=== PATIENT | male | born 1980 | race Caucasian/White ===

== ENCOUNTER 2018-11-30 04:25 | Inpatient (IN) | payer MEDICAID ==
[2018-11-30] MEDS ORDERED: NITROGLYCERIN OINT 1 INCH/GM PACKET TOPICAL STA (04:36)
--- NOTE | 2018-11-30 04:39 | ED ---
Chest Pain HPI - General Chief Complaint: Chest Pain Stated Complaint: chest pain Time Seen by Provider: 11/30/18 04:29 Source: family, EMS Mode of arrival: EMS Limitations: no limitations - History of Present Illness Initial Comments: This patient is a 38-year-old man brought by ambulance to be evaluated for chest pain. The patient relates that he has been having episodes of chest pain, indicating the substernal area, that is been going on intermittently for number of days now. The patient states that he was awakened this morning shortly after 2 AM by the same symptoms, but states it was more severe than it had been. The pain was aching, he states that radiated to his jaw and to his arms. He states that after he called EMS they did give him aspirin and nitroglycerin and that this seems to relieve the pains. He states that the pains were accompanied by feeling short of breath and sweaty. MD Complaint: chest pain Onset/Timin -: hour(s) Onset: during rest, awoke with symptoms Pain Location: substernal Pain Radiation: LUE, jaw/teeth Severity: severe Quality: aching Consistency: now resolved Improves With: nitroglycerin Worsens With: nothing Anginal Symptoms: nausea, diaphoresis Treatments Prior to Arrival: aspirin, nitroglycerin - Related Data Home Medications Medication Instructions Recorded Confirmed Aspirin EC [Ecotrin Low Dose] 81 mg PO ONCE PRN 11/30/18 11/30/18 Flaxseed Oil 1,000 mg PO DAILY 11/30/18 11/30/18 Omeprazole 20 mg PO DAILY 11/30/18 11/30/18 Previous Rx's Medication Instructions Recorded Atorvastatin [Lipitor] 80 mg PO HS #30 tab 12/01/18 Clopidogrel [Plavix] 75 mg PO DAILY #30 tab 12/01/18 Metoprolol Succinate (ER) [Toprol 12.5 mg PO HS #30 tab.er.24h 12/01/18 XL] Nitroglycerin Sl Tabs [Nitrostat] 0.4 mg SUBLINGUAL Q5M PRN #25 tab 12/01/18 Allergies Allergy/AdvReac Type Severity Reaction Status Date / Time No Known Allergies Allergy Verified 11/30/18 06:38 Review of Systems ROS Statement: Those systems with pertinent positive or pertinent negative responses have been documented in the HPI. ROS Other: All systems not noted in ROS Statement are negative. Constitutional: Denies: fever, chills Respiratory: Reports: dyspnea. Denies: cough Cardiovascular: Reports: chest pain. Denies: palpitations, orthopnea, edema, syncope Gastrointestinal: Reports: nausea. Denies: abdominal pain, vomiting, melena, hematochezia Genitourinary: Denies: dysuria, hematuria Musculoskeletal: Denies: back pain Skin: Denies: rash Neurological: Denies: headache, weakness, numbness Hematological/Lymphatic: Denies: easy bleeding EKG Findings - EKG Results: EKG: interpreted by KEYANA, sinus rhythm (Rate 71 bpm), normal axis, normal QRS, normal ST/T Past Medical History Past Medical History: GERD/Reflux, Hypertension History of Any Multi-Drug Resistant Organisms: None Reported Past Surgical History: No Surgical Hx Reported Past Psychological History: No Psychological Hx Reported Smoking Status: Current every day smoker Past Alcohol Use History: None Reported Past Drug Use History: None Reported General Exam Limitations: no limitations General appearance: alert, in no apparent distress Head exam: Present: atraumatic, normocephalic Eye exam: Present: normal appearance. Absent: scleral icterus, conjunctival injection ENT exam: Present: normal oropharynx, mucous membranes moist Neck exam: Present: normal inspection Respiratory exam: Present: normal lung sounds bilaterally. Absent: respiratory distress, wheezes, rales, rhonchi, stridor, chest wall tenderness Cardiovascular Exam: Present: regular rate, normal rhythm, normal heart sounds. Absent: systolic murmur, diastolic murmur, rubs, gallop GI/Abdominal exam: Present: soft. Absent: distended, tenderness, guarding, rebound, rigid, mass Extremities exam: Present: normal inspection, normal capillary refill. Absent: pedal edema, calf tenderness Back exam: Present: normal inspection. Absent: CVA tenderness (R), CVA tenderness (L) Neurological exam: Present: alert Skin exam: Present: warm, dry, intact, normal color. Absent: rash Course Vital Signs 11/30/18 11/30/18 11/30/18 04:28 04:33 05:31 Temperature 98.3 F Pulse Rate 70 54 L Respiratory 16 22 20 Rate Blood Pressure 150/110 127/92 O2 Sat by Pulse 97 97 Oximetry 11/30/18 11/30/18 06:00 06:33 Temperature 98.2 F Pulse Rate 54 L 53 L Respiratory 18 20 Rate Blood Pressure 135/80 129/81 O2 Sat by Pulse 98 97 Oximetry - Reevaluation(s) Reevaluation #1: 11/30/18 04:48 The patient's repeat 12-lead ECG shows what appears to be normal sinus rhythm rate of 60 bpm, otherwise similar to first ECG. Chest Pain MDM - [facility] Patient's 38-year-old man with episodes of chest pain. He is free of pain following the medications that EMS had given. Troponin is minimally elevated. Heparin is ordered and is I did discuss case with cardiology who will see the patient. Critical Care Time Critical Care Time: Yes (35 minutes) Disposition Clinical Impression: Acute coronary syndrome Disposition: ADMITTED IP TO THIS HOSP Condition: Stable Is patient prescribed a controlled substance at d/c from ED?: No
[2018-11-30 04:43] LABS: Basophils # (A) 0.1 k/uL (0-0.2); Basophils % (A) 1 %; Eosinophils # (A) 0.4 k/uL (0-0.7); Eosinophils % (A) 4 %; HCT 45.7 % (39.0-53.0); HGB 15.4 gm/dL (13.0-17.5); Lymphocytes # (A) 3.1 k/uL (1.0-4.8); Lymphocytes % (A) 31 %; MCH 30.2 pg (25.0-35.0); MCHC 33.8 g/dL (31.0-37.0); MCV 89.4 fL (80.0-100.0); Mean Platelet Volume 6.3; Monocytes # (A) 0.5 k/uL (0-1.0); Monocytes % (A) 5 %; Neutrophils # (A) 5.8 k/uL (1.3-7.7); Neutrophils % (A) 58 %; Platelet Count 416 k/uL (150-450); RBC 5.11 m/uL (4.30-5.90); RDW 14.2 % (11.5-15.5); WBC 10.1 k/uL (3.8-10.6)
[2018-11-30 04:56] LABS: INR 0.9 (<1.2); Partial Thromboplastin Time 22.8 sec (22.0-30.0); Prothrombin Time 9.8 sec (9.0-12.0)
[2018-11-30 04:57] LABS: African American GFR (CKD) >90 (>60 ml/min/1.73 sqM); Amylase 44 U/L (30-110); Anion Gap 11 mmol/L; Calcium 9.1 mg/dL (8.4-10.2); Carbon Dioxide 23 mmol/L (22-30); Chloride 107 mmol/L (98-107); Glucose 110 mg/dL (74-99); Non-African American GFR(CKD) >90 (>60 ml/min/1.73 sqM); Sodium 141 mmol/L (137-145)
[2018-11-30 04:58] LABS: Albumin 4.1 g/dL (3.5-5.0); Blood Urea Nitrogen 14 mg/dL (9-20); Potassium 4.5 mmol/L (3.5-5.1); Total Bilirubin 0.4 mg/dL (0.2-1.3)
[2018-11-30 04:59] LABS: ALT 34 U/L (21-72); AST 33 U/L (17-59); Alkaline Phosphatase 53 U/L (38-126)
--- NOTE | 2018-11-30 05:07 | XR ---
EXAM: XR Chest, 1 View CLINICAL HISTORY: ITS.REASON XR Reason: chest pain TECHNIQUE: Frontal view of the chest. COMPARISON: No relevant prior studies available. FINDINGS: Lungs: Unremarkable. No consolidation. Pleural space: Unremarkable. No pneumothorax. Heart: No pneumomediastinum. Mediastinum: Unremarkable. Bones/joints: No definite fracture. IMPRESSION: No acute findings.
[2018-11-30 05:11] LABS: D-Dimer 0.79 mg/L FEU (<0.60)
[2018-11-30] MEDS ORDERED: HEPARIN SODIUM,PORCINE 5,000 UNIT/ML 1 ML VIAL IV ONE (06:11)
[2018-11-30] MEDS ORDERED: HEPARIN SODIUM,PORCINE 5,000 UNIT/ML 1 ML VIAL IV PRN (06:11)
[2018-11-30] MEDS: HEPARIN SOD,PORK IN 0.45% NACL 25,000 UNIT in 0.45% NACL 1 250ML.BAG IV SCH (06:21)
[2018-11-30] MEDS ORDERED: ACETAMINOPHEN TAB 325 MG TAB PO PRN (06:24)
[2018-11-30] MEDS ORDERED: MORPHINE SULFATE 4 MG/ML SYRINGE IV PRN (06:24)
[2018-11-30] MEDS ORDERED: NITROGLYCERIN SL TABS 0.4 MG TAB SUBLINGUAL PRN ×2 (06:24→07:46)
[2018-11-30] MEDS ORDERED: ATORVASTATIN 80 MG TAB PO STA (06:26)
[2018-11-30] MEDS ORDERED: SODIUM CHLORIDE 0.9% 1,000 ML IV SCH ×2 (06:30→08:00)
--- NOTE | 2018-11-30 06:35 | CT ---
EXAM: CT Angiography Chest Without And With Intravenous Contrast CLINICAL HISTORY: ITS.REASON CT Reason: elevated d-dimer TECHNIQUE: Axial computed tomographic angiography images of the chest without and with intravenous contrast using pulmonary embolism protocol. This CT exam was performed using one or more of the following dose reduction techniques: automated exposure control, adjustment of the mA and/or kV according to patient size, and/or use of iterative reconstruction technique. 3D reconstructed images were created and reviewed. COMPARISON: No relevant prior studies available. FINDINGS: Pulmonary arteries: Unremarkable. No pulmonary embolism. Aorta: No suspicious findings. No thoracic aortic aneurysm. Lungs: Peribronchial thickening without infiltrate. No mass. Pleural space: Unremarkable. No significant effusion. No pneumothorax. Heart: Unremarkable. No cardiomegaly. No significant pericardial effusion. No evidence of RV dysfunction. Bones/joints: No acute fracture. No dislocation. Soft tissues: Unremarkable. Lymph nodes: Unremarkable. No enlarged lymph nodes. IMPRESSION: No acute findings.
--- NOTE | 2018-11-30 06:37 | CT ---
EXAM: CT Abdomen and Pelvis With Intravenous Contrast CLINICAL HISTORY: ITS.REASON CT Reason: Pain TECHNIQUE: Axial computed tomography images of the abdomen and pelvis with intravenous contrast. This CT exam was performed using one or more of the following dose reduction techniques: automated exposure control, adjustment of the mA and/or kV according to patient size, and/or use of iterative reconstruction technique. COMPARISON: No relevant prior studies available. FINDINGS: Lung bases: Unremarkable. No mass. No consolidation. ABDOMEN: Liver: Unremarkable. No mass. Gallbladder and bile ducts: No abnormal ductal dilation or stones. Pancreas: Unremarkable. No mass. No ductal dilation. Spleen: Unremarkable. No splenomegaly. Adrenals: Unremarkable. No mass. Kidneys and ureters: Unremarkable. No solid mass. No hydronephrosis. Stomach and bowel: No obstruction. No mucosal thickening. PELVIS: Appendix: No findings to suggest acute appendicitis. Bladder: Unremarkable. No mass. Reproductive: Unremarkable as visualized. ABDOMEN and PELVIS: Intraperitoneal space: Unremarkable. No free air. No significant fluid collection. Bones/joints: No acute fracture. No dislocation. Soft tissues: Unremarkable. Vasculature: No abdominal aortic aneurysm. Lymph nodes: Unremarkable. No enlarged lymph nodes. IMPRESSION: No acute findings.
[2018-11-30 06:46] LABS: Amphetamine Screen,Urine Not Detected (NotDetected); Barbiturate Screen,Urine Not Detected (NotDetected); Benzodiazepines Screen,Urine Not Detected (NotDetected); Cocaine Screen,Urine Not Detected (NotDetected); Methadone Screen, Urine Not Detected (NotDetected); Opiate Screen,Urine Not Detected (NotDetected); Oxycodone Screen, Urine Not Detected (NotDetected); Phencyclidine Screen,Urine Not Detected (NotDetected); Tricyclic Antidepressant,Urine Not Detected (NotDetected); Urn Cannabinoid Scrn Not Detected (NotDetected)
[2018-11-30 06:58] LABS: Basophils # (A) 0.1 k/uL (0-0.2); Basophils % (A) 1 %; Eosinophils # (A) 0.3 k/uL (0-0.7); Eosinophils % (A) 3 %; HCT 45.4 % (39.0-53.0); HGB 14.9 gm/dL (13.0-17.5); Lymphocytes # (A) 2.2 k/uL (1.0-4.8); Lymphocytes % (A) 24 %; MCH 29.4 pg (25.0-35.0); MCHC 32.9 g/dL (31.0-37.0); MCV 89.4 fL (80.0-100.0); Monocytes # (A) 0.5 k/uL (0-1.0); Monocytes % (A) 5 %; Neutrophils % (A) 65 %; Platelet Count 389 k/uL (150-450); RBC 5.08 m/uL (4.30-5.90); RDW 12.8 % (11.5-15.5); WBC 9.2 k/uL (3.8-10.6)
[2018-11-30] MEDS ORDERED: HEPARIN SODIUM 1,000 UN/ML (10ML VL) ONE (07:05)
[2018-11-30] MEDS ORDERED: VERAPAMIL 2.5 MG/ML 2 ML AMP ONE (07:05)
[2018-11-30] MEDS ORDERED: LIDOCAINE 1% INJ 10MG/ML (20 ML MDV) ONE (07:05)
[2018-11-30 07:06] LABS: Partial Thromboplastin Time 70.8 sec (22.0-30.0); Prothrombin Time 10.6 sec (9.0-12.0)
[2018-11-30] MEDS ORDERED: MIDAZOLAM PF (FBP) 2 MG/2 ML VIAL IV ONE (07:14)
[2018-11-30] MEDS ORDERED: IV FLUID CONTINUATION 1,000 ML IV ONE (07:15)
[2018-11-30] MEDS ORDERED: LIDOCAINE 1% INJ 10MG/ML (20 ML MDV) SQ ONE (07:15)
[2018-11-30] MEDS ORDERED: fentaNYL (PF) 50 MCG/ML 2 ML AMP ONE (07:16)
--- NOTE | 2018-11-30 07:17 | P.CRDCN ---
History of Present Illness History of present illness: This is Dr. Milner dictating a consult on this patient The patient was interviewed and examined by me IMPRESSION / ASSESSMENT: Acute coronary syndrome abnormal cardiac enzymes transient ST elevation en Route to the hospital with resolution by the time he came to the hospital Hypertension Current smoker PLAN: IV heparin aspirin and statins, B-blockers control blood pressure and urgent coronary angiography and appropriate intervention Hemoglobin A1c Tox screen Lipid panel HPI For the last several days starting probably Friday of last week the patient has been experiencing transient discomfort in the chest that radiates into his jaw and both his elbows and associated with nausea or sweatiness and feeling weak. The episodes last for a few minutes and then subside. This is been happening repeatedly for the last several days. This morning he was woken up with midsternal chest discomfort of a similar character and same associated symptoms that lasted for 20-30 minutes and he called EMS The EMS ECG shows ST elevation in the inferior leads with ST depression in V1 and V2 but when he arrived here he is pain-free and the twelve-lead ECGs show a very subtle ST segment abnormality in the inferior leads only, mostly in one EKG but the other 2 EKGs look fairly normal ROS: No fever chills or rigors, no cough, phlegm or expectoration, no nausea, vomiting or diarrhea, no hematuria, dysuria, no musculoskeletal complaints, no strokes or seizures, no skin lesions. EXAMINATION: Blood pressure 129/81 mmHg pulse rate in the 50s afebrile 98.2F Breath sounds are clear no rhonchi no crackles Heart sounds S1 and S2 are normal no murmurs no gallops no rub Abdomen soft nontender Extremity is warm no edema REVIEW OF LABS, ECG & MEDICAL DATA Mildly elevated d-dimer Abnormal troponin at 0.05 to normal kidneys normal electrolytes Hemoglobin 14.9 Past Medical History Past Medical History: GERD/Reflux, Hypertension History of Any Multi-Drug Resistant Organisms: None Reported Past Surgical History: No Surgical Hx Reported Past Psychological History: No Psychological Hx Reported Smoking Status: Current every day smoker Past Alcohol Use History: None Reported Past Drug Use History: None Reported Medications and Allergies Home Medications Medication Instructions Recorded Confirmed Type Aspirin EC [Ecotrin Low Dose] 81 mg PO ONCE PRN 11/30/18 11/30/18 History Flaxseed Oil 1,000 mg PO DAILY 11/30/18 11/30/18 History Metoprolol Succinate [Toprol XL] 25 mg PO HS 11/30/18 11/30/18 History Omeprazole 20 mg PO DAILY 11/30/18 11/30/18 History cloNIDine HCL [Catapres] 0.2 mg PO BID 11/30/18 11/30/18 History Allergies Allergy/AdvReac Type Severity Reaction Status Date / Time No Known Allergies Allergy Verified 11/30/18 06:38 Physical Exam Vitals: Vital Signs Temp Pulse Resp BP Pulse Ox 11/30/18 06:33 98.2 F 53 L 20 129/81 97 11/30/18 06:00 54 L 18 135/80 98 11/30/18 05:31 54 L 20 127/92 97 11/30/18 04:33 22 11/30/18 04:28 98.3 F 70 16 150/110 97 Intake and Output 11/29/18 11/30/18 11/30/18 22:59 06:59 14:59 Other: Weight 87.09 kg Results 11/30/18 06:46 11/30/18 04:31 Cardiac Enzymes 11/30/18 11/30/18 Range/Units 04:31 04:31 AST 33 (17-59) U/L Troponin I 0.052 H* (0.000-0.034) ng/mL Coagulation 11/30/18 11/30/18 Range/Units 04:31 06:46 PT 9.8 10.6 (9.0-12.0) sec APTT 22.8 70.8 H (22.0-30.0) sec CBC 11/30/18 11/30/18 Range/Units 04:31 06:46 WBC 10.1 9.2 (3.8-10.6) k/uL RBC 5.11 5.08 (4.30-5.90) m/uL Hgb 15.4 14.9 (13.0-17.5) gm/dL Hct 45.7 45.4 (39.0-53.0) % Plt Count 416 389 (150-450) k/uL Comprehensive Metabolic Panel 11/30/18 Range/Units 04:31 Sodium 141 (137-145) mmol/L Potassium 4.5 (3.5-5.1) mmol/L Chloride 107 (98-107) mmol/L Carbon Dioxide 23 (22-30) mmol/L BUN 14 (9-20) mg/dL Creatinine 1.03 (0.66-1.25) mg/dL Glucose 110 H (74-99) mg/dL Calcium 9.1 (8.4-10.2) mg/dL AST 33 (17-59) U/L ALT 34 (21-72) U/L Alkaline Phosphatase 53 (38-126) U/L Total Protein 7.0 (6.3-8.2) g/dL Albumin 4.1 (3.5-5.0) g/dL Current Medications Generic Name Dose Route Start Last Admin Trade Name Freq PRN Reason Stop Dose Admin Acetaminophen 650 mg 11/30/18 06:24 Tylenol Tab PO Q4HR PRN Pain Aspirin 325 mg 12/01/18 09:00 Aspirin PO DAILY [facility] Atorvastatin Calcium 80 mg 12/01/18 09:00 Lipitor PO DAILY [facility] Heparin Sodium (Porcine) 0 unit 11/30/18 06:11 Heparin IV PER PROTOCOL PRN Low PTT Protocol Heparin Sodium/Sodium Chloride 250 mls @ 9.58 mls/hr 11/30/18 06:15 11/30/18 06:21 25,000 unit/ Sodium Chloride IV 11 units/kg/hr .Q24H FIFI 9.58 mls/hr Administration Protocol 11 UNITS/KG/HR Sodium Chloride 1,000 mls @ 100 mls/hr 11/30/18 06:30 Saline 0.9% IV .Q10H [facility] Morphine Sulfate 4 mg 11/30/18 06:24 Morphine Sulfate (Inj) IV Q5M PRN Chest Pain Nitroglycerin 0.4 mg 11/30/18 06:24 Nitrostat SUBLINGUAL Q5M PRN Chest Pain Intake and Output 11/29/18 11/30/18 11/30/18 22:59 06:59 14:59 Other: Weight 87.09 kg 11/30/18 06:46 11/30/18 04:31
[2018-11-30] MEDS ORDERED: VERAPAMIL SYRINGE (5 MG/10 ML) INTRAARTER ONE (07:18)
[2018-11-30] MEDS ORDERED: fentaNYL (PF) 50 MCG/ML 2 ML AMP IV ONE (07:20)
[2018-11-30] MEDS ORDERED: CLOPIDOGREL 75 MG TAB ONE (07:24)
[2018-11-30] MEDS ORDERED: BIVALIRUDIN BOLUS 250 MG/50 ML IV ONE (07:26)
[2018-11-30] MEDS ORDERED: CLOPIDOGREL 75 MG TAB PO ONE (07:27)
[2018-11-30] MEDS ORDERED: BIVALIRUDIN 250 MG in SODIUM CHLORIDE 0.9% 37 ML IV ONE (07:28)
[2018-11-30] MEDS: NITROGLYCERIN 1000MCG/10ML SYRINGE INTRACORON ONE ×2 (07:31→07:37)
[2018-11-30] MEDS ORDERED: IOPAMIDOL-370 100ML BTL INJ ONE (07:38)
[2018-11-30] MEDS ORDERED: ATROPINE SULFATE 0.1 MG/ML 10ML SYRINGE IV PRN (07:46)
[2018-11-30] MEDS ORDERED: RX INFO: IV CONTRAST WAS GIVEN 1 EACH MISC MISCELLANE PRN (07:46)
[2018-11-30] MEDS ORDERED: ZOLPIDEM 5 MG TAB PO PRN (07:46)
[2018-11-30] MEDS ORDERED: MAG HYDROX/AL HYDROX/SIMETH 30 ML CUP PO PRN (07:46)
--- NOTE | 2018-11-30 08:33 | CC ---
CARDIAC CATHETERIZATION REPORT CARDIAC CATHETERIZATION AND PERCUTANEOUS CORONARY INTERVENTION: DATE OF SERVICE: November 30, 2018 PERFORMING PHYSICIAN: Bao Perry MD. PROCEDURE PERFORMED: 1. Selective right and left coronary angiogram. 2. Successful stenting of the mid left circumflex using 3.25 x 18 mm Xience BORIS with an excellent angiographic result and reduction of stenosis from 100% to 0%. INDICATION: This is a 38-year-old gentleman who was brought to the emergency room by ambulance with chest discomfort. The EKG showed ischemic ST and T-wave abnormalities and the troponin came in to be abnormal, consistent with acute coronary syndrome. Because of that, a heart catheterization was advised. APPROACH: Right radial artery. COMPLICATION: None. LEVEL OF SEDATION: Moderate with sedation length of 29 minutes. PROCEDURE DESCRIPTION: After obtaining an informed consent, the patient was brought to cardiac slab off mill tender. The right radial artery was cannulated using micropuncture technique. The micropuncture wire passed easily then I placed a 6-Polish sheath. I did give the patient 2 mg of verapamil IA. Selective right and left coronary angiogram performed using JR4 and JL3.5 catheters. After that, I did intervene on the left circumflex. Please see a separate paragraph for that. SELECTIVE CORONARY ANGIOGRAM: 1. The right coronary artery is a large caliber vessel. It is a dominant vessel. The proximal RCA had a lesion appeared to be in the range of 30% to 40% only. The mid and distal RCA are angiographically normal. The RCA distally bifurcates into PDA and PLV branches, both appeared to be angiographically normal. 2. The left main is angiographically normal. It bifurcates into left circumflex and left anterior descending artery. 3. Left circumflex is a large caliber vessel. It is a nondominant vessel. The proximal circumflex is normal and gives rise into medium size first OM branch which seems to be angiographically normal. The mid circumflex has a lesion appeared to be in the range of 99.9%. The circumflex distally appeared to be angiographically normal. The circumflex distally gives rise into second OM branch which seems to be angiographically normal. 4. The LAD: The proximal LAD is normal and gives rise into first diagonal branch which has mild disease in its ostium. The mid LAD appeared to be normal and distally is normal as well. PCI OF THE LEFT CIRCUMFLEX: Anticoagulation was initiated using Angiomax. Subsequently I did engage the left main using JL3.5 guide. I did wire it. I did wire the left circumflex using a Whisper wire. After that I did PTCA ballooning using 2.5 x 12 mm balloon before I deployed 3.25 x 18 mm Xience BORIS where the stent was positioned under fluoroscopy guidance and deployed under 18 atmospheres for 20 seconds with the following angiogram showing excellent angiographic results with FARIHA-3 flow. No residual dissection. No perforation. CONCLUSION: 1. Acute non ST elevation myocardial infarction in this 38-year-old gentleman. 2. 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 3. Successful stenting of the mid left circumflex using 3.25 x 18 mm Xience BORIS with excellent angiographic results. POSTPROCEDURE MANAGEMENT: 1. Dual anti-platelet therapy. 2. Risk factors modifications. 3. Follow up with the patient. 4. An echocardiogram with Doppler. MMODL / IJN: [id number] /
--- NOTE | 2018-11-30 08:45 | LTR ---
November 30, 2018 Re: Andres Almanza Dear Dr. Scott: Mr. Andres lAmanza was brought to the emergency room at [facility] with chest discomfort and ruled in for acute non ST elevation myocardial infarction. He underwent a heart catheterization which revealed acute total occlusion of the left circumflex which was opened and stented with an excellent angiographic result. I want to thank you for allowing me to participate in his care and please do not hesitate to call if you have any question or concern. Sincerely, MD MALLORY Britton / FE: [id number] /
[2018-11-30 11:09] VITALS: RESP 18
--- NOTE | 2018-11-30 11:42 | ECHOF ---
Referral Reason:nstemi MEASUREMENTS -------- HEIGHT: 165.1 cm WEIGHT: 89.8 kg BP: 129/81 IVSd: 1.0 cm (0.6 - 1.1) LVIDd: 5.1 cm (3.9 - 5.3) LVPWd: 1.0 cm (0.6 - 1.1) IVSs: 1.1 cm LVIDs: 4.1 cm LVPWs: 1.0 cm Ao Diam: 3.1 cm (2.0 - 3.7) AV Cusp: 1.8 cm (1.5 - 2.6) MV EXCURSION: 19.436 mm (> 18.000) MV EF SLOPE: 155 mm/s (70 - 150) EPSS: 0.6 cm MV E Lázaro: 0.98 m/s MV DecT: 129 ms MV A Lázaro: 0.61 m/s MV E/A Ratio: 1.62 RAP: 5.00 mmHg RVSP: 25.88 mmHg FINDINGS -------- Sinus rhythm. This was a technically adequate study. LV size, wall thickness and systolic function are normal, with an EF greater than 55%. The left galileo tricular size is normal. The right ventricle is normal in size. The left atrial size is normal. Normal LA size by volume 22+/-6 ml/m2. The right atrial size is normal. The aortic valve is trileaflet, and appears structurally normal. No aortic stenosis or regurgitation. Mild mitral annular calcification present. Mild mitral regurgitation is present. Mild tricuspid regurgitation present. There is no evidence of pulmonary hypertension. The right v entricular systolic pressure, as measured by Doppler, is 25.88mmHg. There is no pulmonic regurgitation present. The aortic root size is normal. There is no pericardial effusion. CONCLUSIONS -------- 1. Sinus rhythm. 2. This was a technically adequate study. 3. LV size, wall thickness and systolic function are normal, with an EF greater than 55%. 4. The left ventricular size is normal. 5. The right ventricle is normal in size. 6. The left atrial size is normal. 7. Normal LA size by volume 22+/-6 ml/m2. 8. The right atrial size is normal. 9. The aortic valve is trileaflet, and appears structurally normal. No aortic stenosis or regurgitati on. 10. Mild mitral annular calcification present. 11. Mild mitral regurgitation is present. 12. Mild tricuspid regurgitation present. 13. There is no evidence of pulmonary hypertension. 14. The right ventricular systolic pressure, as measured by Doppler, is 25.88mmHg. 15. There is no pulmonic regurgitation present. 16. The aortic root size is normal. 17. There is no pericardial effusion. SEISMOGRAPH HELPER: Eda Cano RDCS
--- NOTE | 2018-11-30 11:58 | P.HPIM ---
History of Present Illness H&P Date: 11/30/18 Chief Complaint: Chest pain Patient is a 38-year-old male with a known history of hypertension, tourettes syndrome and GERD came to ER with complaints of chest tightness started around 2 AM last night and woke him up from sleep. Associated with shortness of breath. Pain is 7 / 10 in severity. Pain is mainly left retrosternal. Patient also felt left arm pain and elbow pain and jaw pain. Lasted about half an hour and associated with nausea as well. No episodes of vomiting. Patient felt dizzy. Denied any diaphoresis. Patient says that he has been having chest tightness for the past 3 days lasting about 3-5 minutes. Last night pain was more severe and more prolonged which made him to come to ER. EMS was called and patient was given aspirin and nitroglycerin which seemed to relieve his pain. No fever no chills. No cough or sputum production. No leg swelling. Patient says that he has been having exertional short of breath recently. Patient is taking Catapres and Toprol for his tourettes syndrome, which has been present for several years. Patient is off Catapres for 10 years . patient has been more symptomatic recently and was restarted on Catapres and Toprol at the end of October 2018. EKG showed sinus bradycardia with sinus arrhythmia. Prior EKG showed ST elevation in the inferior leads and ST depression in V1 and V2. CT abdomen and pelvis. Negative Chest x-ray showed no acute cardiopulmonary process. CT angiography on the chest showed no evidence of pulmonary embolism. D-dimer 0.79 Troponin 0.052 and 0.082 UDS negative. Patient does have history of smoking and family history of coronary artery disease with CO in his father at the age of 30s. Review of Systems Constitutional: Patient denies any fever or chills . No generalized weakness or weight loss. Abdomen: Patient denied nausea vomiting and diarrhea and abdominal pain. Cardiovascular: Patient denies any chest pain or short of breath no palpitations. Respiratory: patient denied any cough is from production. No shortness of b reath Neurologic: Patient denied any numbness or tingling headache. Musculoskeletal: Patient denies any complaints of joint swelling or deformity. Skin: Negative Psychiatric: Negative Endocrine: No heat or cold intolerance. No recent weight gain. Genitourinary: No dysuria or hematuria. All other 14 point ROS negative except the above Past Medical History Past Medical History: GERD/Reflux, Hypertension History of Any Multi-Drug Resistant Organisms: None Reported Past Surgical History: No Surgical Hx Reported Past Psychological History: No Psychological Hx Reported Smoking Status: Current every day smoker Past Alcohol Use History: None Reported Past Drug Use History: None Reported Medications and Allergies Home Medications Medication Instructions Recorded Confirmed Type Aspirin EC [Ecotrin Low Dose] 81 mg PO ONCE PRN 11/30/18 11/30/18 History Flaxseed Oil 1,000 mg PO DAILY 11/30/18 11/30/18 History Metoprolol Succinate [Toprol XL] 25 mg PO HS 11/30/18 11/30/18 History Omeprazole 20 mg PO DAILY 11/30/18 11/30/18 History cloNIDine HCL [Catapres] 0.2 mg PO BID 11/30/18 11/30/18 History Allergies Allergy/AdvReac Type Severity Reaction Status Date / Time No Known Allergies Allergy Verified 11/30/18 06:38 Physical Exam Vitals: Vital Signs Temp Pulse Resp BP Pulse Ox 11/30/18 06:33 98.2 F 53 L 20 129/81 97 11/30/18 06:00 54 L 18 135/80 98 11/30/18 05:31 54 L 20 127/92 97 11/30/18 04:33 22 11/30/18 04:28 98.3 F 70 16 150/110 97 Intake and Output 11/29/18 11/30/18 11/30/18 22:59 06:59 14:59 Other: Weight 87.09 kg PHYSICAL EXAMINATION: Patient is lying in the bed comfortably, no acute distress, awake alert and oriented.. HEENT: Normocephalic. Neck is supple. Pupils reactive. Nostrils clear. Oral cavity is moist. Ears reveal no drainage. Neck reveals no JVD, carotid bruits, or thyromegaly. CHEST EXAMINATION: Trachea is central. Symmetrical expansion. Lung collado clear to auscultation and percussion. CARDIAC: Normal S1, S2 with no gallops. No murmurs ABDOMEN: Soft. Bowel sounds normal. No organomegaly. No abdominal bruits. Extremities: reveal no edema. No clubbing or cyanosis Neurologically awake, alert, oriented x3 with well-coordinated movements. No focal deficits noted Skin: No rash or skin lesions. Psychiatric: Coperative. Nonsuicidal Musculoskeletal: No joint swelling or deformity. Normal range of motion. Results CBC & Chem 7: 11/30/18 06:46 11/30/18 04:31 Labs: Abnormal Lab Results - Last 24 Hours (Table) 11/30/18 11/30/18 11/30/18 Range/Units 04:31 04:31 04:31 APTT (22.0-30.0) sec D-Dimer 0.79 H (<0.60) mg/L FEU Glucose 110 H (74-99) mg/dL Troponin I 0.052 H* (0.000-0.034) ng/mL 11/30/18 11/30/18 Range/Units 06:46 06:46 APTT 70.8 H (22.0-30.0) sec D-Dimer (<0.60) mg/L FEU Glucose (74-99) mg/dL Troponin I 0.082 H* (0.000-0.034) ng/mL Thrombosis Risk Factor Assmnt - DVT/VTE Prophylaxis DVT/VTE Prophylaxis: Pharmacologic Prophylaxis ordered Assessment and Plan Assessment: Acute ST elevated CO. Status post cardiac catheterization (BORIS) stent placement to mid left circumflex artery. Sinus bradycardia Hypertension GERD Currently everyday smoker Family history of coronary disease. DVT prophylaxis Plan: Patient will be continued on telemetry monitoring. Currently denied any chest pain free. Continue with aspirin and Plavix statins and follow closely. Cardiology is on board. Metoprolol is on hold due to bradycardia. will continue to hold Catapres as well. Further recommendations based on the clinical course. Time with Patient: Greater than 30
[2018-11-30 12:51] VITALS: BMI 31.9
[2018-11-30] MEDS: ASPIRIN 325 MG TAB PO SCH (16:57)
[2018-11-30] MEDS: PANTOPRAZOLE 40 MG TABLET PO SCH (18:43)
[2018-11-30 19:32] LABS: Hemoglobin A1C 5.7 % (4.0-6.0)
[2018-11-30] MEDS: DOCUSATE 100 MG CAP PO SCH (19:53)
[2018-11-30] MEDS ORDERED: METOPROLOL SUCCINATE (ER) 25 MG TAB.ER.24H PO SCH (21:00)
[2018-11-30] MEDS ORDERED: ATORVASTATIN 80 MG TAB PO SCH (21:00)
[2018-12-01 06:13] LABS: Basophils # (A) 0.1 k/uL (0-0.2); Basophils % (A) 1 %; Eosinophils # (A) 0.3 k/uL (0-0.7); Eosinophils % (A) 3 %; HCT 46.2 % (39.0-53.0); HGB 15.3 gm/dL (13.0-17.5); Lymphocytes # (A) 2.6 k/uL (1.0-4.8); Lymphocytes % (A) 27 %; MCH 29.8 pg (25.0-35.0); MCHC 33.2 g/dL (31.0-37.0); MCV 89.7 fL (80.0-100.0); Mean Platelet Volume 6.4; Monocytes # (A) 0.5 k/uL (0-1.0); Monocytes % (A) 5 %; Neutrophils # (A) 5.9 k/uL (1.3-7.7); Neutrophils % (A) 62 %; Platelet Count 403 k/uL (150-450); RBC 5.15 m/uL (4.30-5.90); RDW 14.2 % (11.5-15.5); WBC 9.6 k/uL (3.8-10.6)
[2018-12-01 06:22] LABS: African American GFR (CKD) >90 (>60 ml/min/1.73 sqM); Cholesterol 177 mg/dL (<200); HDL Cholesterol 35 mg/dL (40-60); LDL Cholesterol,Calculated 114 mg/dL (0-99); Non-African American GFR(CKD) 81 (>60 ml/min/1.73 sqM); Triglycerides 141 mg/dL (<150)
[2018-12-01] MEDS: PANTOPRAZOLE 40 MG TABLET PO SCH (06:44)
[2018-12-01 07:45] VITALS: BP 153/90; PULSE 48; TEMP 97.6
[2018-12-01] MEDS: HEPARIN SOD,PORK IN 0.45% NACL 25,000 UNIT in 0.45% NACL 1 250ML.BAG IV SCH (08:53)
[2018-12-01] MEDS: DOCUSATE 100 MG CAP PO SCH (08:57)
[2018-12-01] MEDS: ASPIRIN 325 MG TAB PO SCH (08:57)
[2018-12-01] MEDS ORDERED: CLOPIDOGREL 75 MG TAB PO SCH (09:00)
[2018-12-01] MEDS ORDERED: ASPIRIN 81 MG PO SCH (09:00)
[2018-12-01] MEDS ORDERED: ASPIRIN 325 MG TAB PO SCH (09:00)
[2018-12-01] MEDS ORDERED: ATORVASTATIN 80 MG TAB PO SCH (09:00)
--- NOTE | 2018-12-01 14:28 | P.PN ---
Subjective Progress Note Date: 12/01/18 This is a pleasant 38-year-old gentleman who presented to the hospital with an ST elevation myocardial infarction, he was taken to the cardiac catheterization lab where he underwent angioplasty and stenting of the circumflex artery. Patient does have history of hypertension and was a smoker. His EKG performed this morning showed normal sinus rhythm with no changes from post-PCI. Echocardiogram with Doppler study was performed which revealed a normal left ventricular systolic function. The patient was seen and examined today, denied any chest pain in his breathing was stable. Blood pressure 148/80 with a heart rate in the 40s, 98% on room air. Objective - Vital Signs Vital signs: Vital Signs Temp 97.6 F 12/01/18 07:42 Pulse 48 L 12/01/18 07:42 Resp 18 12/01/18 11:50 BP 153/90 12/01/18 07:42 Pulse Ox 98 12/01/18 07:42 Intake & Output 11/30/18 12/01/18 12/01/18 18:59 06:59 18:59 Intake Total 666 240 Balance 666 240 Weight 87.09 kg 84.7 kg Intake: Oral 666 240 Other: Voiding Method Toilet Toilet Toilet # Voids 2 1 - Exam PHYSICAL EXAMINATION: GENERAL: He 8-year-old gentleman in no acute distress at the time of my examination HEENT: Head is atraumatic, normocephalic. Pupils equal, round. Sclera a nicteric. Conjunctiva are clear. Mucous membranes of the mouth are moist. Neck is supple. There is no elevated jugular venous pressure. No carotid bruit is heard. HEART EXAMINATION: [eart S1, S2 normal. No murmur or gallop heard.] CHEST EXAMINATION:[Lungs are clear to auscultation and precussion. No chest wall tenderness is noted on palpation or with deep breathing.] ABDOMEN: [Soft, nontender. Bowel sounds are heard. No organomegaly noted] EXTREMITIES:[2+ peripheral pulses with no evidence of peripheral edema and no calf tenderness noted] right radial site clean and dry, good distal pulse. NEUROLOGIC [atient is awake, alert and oriented X3. . - Labs CBC & Chem 7: 12/01/18 06:02 12/01/18 06:02 Labs: Abnormal Lab Results - Last 24 Hours (Table) 12/01/18 Range/Units 06:02 LDL Cholesterol, Calc 114 H (0-99) mg/dL HDL Cholesterol 35 L (40-60) mg/dL Assessment and Plan Plan: Assessment and plan #1 ST elevation NC status post angioplasty and stenting of the circumflex artery #2 hypertension #3 nicotine dependence #4 bradycardia Plan We will decrease the patient's dose of metoprolol to 12-1/2 mg at at bedtime, continue dual antiplatelet therapy as well as Lipitor 80, sublingual nitroglycerin as needed for chest pain patient may be discharged home today from our perspective. We will make him a follow-up appointment with Dr. Milner in the office post discharge. DNP note has been reviewed, I agree with a documented findings and plan of care. Patient was seen and examined.
[2018-12-01] MEDS ORDERED: METOPROLOL SUCCINATE (ER) 25 MG TAB.ER.24H PO SCH (21:00)
--- NOTE | 2018-12-14 02:14 | P.DS ---
Providers Date of admission: 11/30/18 10:34 Expected date of discharge: 12/01/18 Attending physician: Jacki Hansen Consults: 11/30/18 06:24 Consult Physician Stat Consulting Provider: Shadi Milner Consult Reason/Comments: Acute coronary syndrome Do you want consulting provider notified?: Already Contacted 11/30/18 07:46 Consult Physician Routine Consulting Provider: [facility] Consult Reason/Comments: Post Interventional patient Do you want consulting provider notified?: Already Contacted Primary care physician: Amilcar Scott [facility] Course: Discharge diagnosis Acute ST elevated MA. Status post cardiac catheterization (BORIS) stent placement to mid left circumflex artery. Sinus bradycardia Hypertension GERD Currently everyday smoker Family history of coronary disease. DVT prophylaxis Hospital course Patient is a 38-year-old male with a known history of hypertension, tourettes syndrome and GERD came to ER with complaints of chest tightness started around 2 AM last night and woke him up from sleep. Associated with shortness of breath. Pain is 7 / 10 in severity. Pain is mainly left retrosternal. Patient also felt left arm pain and elbow pain and jaw pain. Lasted about half an hour and associated with nausea as well. No episodes of vomiting. Patient felt dizzy. Denied any diaphoresis. Patient says that he has been having chest tightness for the past 3 days lasting about 3-5 minutes. Last night pain was more severe and more prolonged which made him to come to ER. EMS was called and patient was given aspirin and nitroglycerin which seemed to relieve his pain. No fever no chills. No cough or sputum production. No leg swelling. Patient says that he has been having exertional short of breath recently. Patient is taking Catapres and Toprol for his tourettes syndrome, which has been present for several years. Patient is off Catapres for 10 years . patient has been more symptomatic recently and was restarted on Catapres and Toprol at the end of October 2018. EKG showed sinus bradycardia with sinus arrhythmia. Prior EKG showed ST elevation in the inferior leads and ST depression in V1 and V2. CT abdomen and pelvis. Negative Chest x-ray showed no acute cardiopulmonary process. CT angiography on the chest showed no evidence of pulmonary embolism. D-dimer 0.79 Troponin 0.052 and 0.082 UDS negative. Patient does have history of smoking and family history of coronary artery disease with MA in his father at the age of 30s. 12/01/2018 Patient denied any complaints of chest pain or shortness of breath today. Patient was started on low-dose beta blockers. Continue with aspirin and Plavix and statins. Patient is cleared from cardiology standpoint. No complaints of dizziness or lightheadedness. No other acute overnight issues. PHYSICAL EXAMINATION: Patient is lying in the bed comfortably, no acute distress, awake alert and oriented.. HEENT: Normocephalic. Neck is supple. Pupils reactive. Nostrils clear. Oral cavity is moist. Ears reveal no drainage. Neck reveals no JVD, carotid bruits, or thyromegaly. CHEST EXAMINATION: Trachea is central. Symmetrical expansion. Lung collado clear to auscultation and percussion. CARDIAC: Normal S1, S2 with no gallops. No murmurs ABDOMEN: Soft. Bowel sounds normal. No organomegaly. No abdominal bruits. Extremities: reveal no edema. No clubbing or cyanosis Neurologically awake, alert, oriented x3 with well-coordinated movements. No focal deficits noted Skin: No rash or skin lesions. Psychiatric: Coperative. Nonsuicidal Musculoskeletal: No joint swelling or deformity. Normal range of motion. Vital Signs Temp 97.6 F 12/01/18 07:42 Pulse 48 L 12/01/18 07:42 Resp 18 12/01/18 11:50 BP 153/90 12/01/18 07:42 Pulse Ox 98 12/01/18 07:42 Intake & Output 11/30/18 12/01/18 12/01/18 18:59 06:59 18:59 Intake Total 666 240 Balance 666 240 Weight 87.09 kg 84.7 kg Intake: Oral 666 240 Other: Voiding Method Toilet Toilet Toilet # Voids 2 1 Patient Condition at Discharge: Stable Plan - Discharge Summary Discharge Rx Participant: Yes New Discharge Prescriptions: New Atorvastatin [Lipitor] 80 mg PO HS #30 tab Nitroglycerin Sl Tabs [Nitrostat] 0.4 mg SUBLINGUAL Q5M PRN #25 tab PRN Reason: Chest Pain Clopidogrel [Plavix] 75 mg PO DAILY #30 tab Metoprolol Succinate (ER) [Toprol XL] 12.5 mg PO HS #30 tab.er.24h Continue Omeprazole 20 mg PO DAILY Aspirin EC [Ecotrin Low Dose] 81 mg PO ONCE PRN PRN Reason: Chest Pain Flaxseed Oil 1,000 mg PO DAILY Discontinued cloNIDine HCL [Catapres] 0.2 mg PO BID Metoprolol Succinate [Toprol XL] 25 mg PO HS Discharge Medication List Aspirin EC [Ecotrin Low Dose] 81 mg PO ONCE PRN 11/30/18 [History] Flaxseed Oil 1,000 mg PO DAILY 11/30/18 [History] Omeprazole 20 mg PO DAILY 11/30/18 [History] Atorvastatin [Lipitor] 80 mg PO HS #30 tab 12/01/18 [Rx] Clopidogrel [Plavix] 75 mg PO DAILY #30 tab 12/01/18 [Rx] Metoprolol Succinate (ER) [Toprol XL] 12.5 mg PO HS #30 tab.er.24h 12/01/18 [Rx] Nitroglycerin Sl Tabs [Nitrostat] 0.4 mg SUBLINGUAL Q5M PRN #25 tab 12/01/18 [Rx] Follow up Appointment(s)/Referral(s): Shadi Milner MD [STAFF PHYSICIAN] - 12/09/18 11:00 am (Friday) Amilcar Scott MD [Primary Care Provider] - 1-2 days (Spoke to inspection manager. Office will call you back with appointment time.) Patient Instructions/Handouts: *Surgery [facility] - After Heart Catheterization - Head Of History Instructions, Left Heart Catheterization (DC) Discharge Disposition: HOME SELF-CARE
== END 2018-12-01 15:34 | disposition home or self-care (01) | DRG 247 ==
LOC: EC 04:25 → 3SCARD 06:24 → OBSVTOIN 10:34
PROVIDERS: ADMIT Hospitalist; ATTEND Hospitalist
PROC: 027034Z Dilation of Coronary Artery, One Artery with Drug-eluting Intraluminal Device, Percutaneous Approach (ICD-10-PCS; principal; 2018-11-30 06:58)
DX: I21.3 ST elevation (STEMI) myocardial infarction of unspecified site (principal); F17.200 Nicotine dependence, unspecified, uncomplicated; I10 Essential (primary) hypertension; F95.2 Tourette's disorder; R00.1 Bradycardia, unspecified; K21.9 Gastro-esophageal reflux disease without esophagitis; Z79.899 Other long term (current) drug therapy; Z82.49 Family history of ischemic heart disease and other diseases of the circulatory system; Z95.5 Presence of coronary angioplasty implant and graft
CPT/HCPCS: 36415; 71045; 71275; 74177; 80053; 80061; 80306; 82150; 82565; 83036; 83690; 83735; 84484; 85025; 85379; 85610; 85730; 93005; 93306; 93454; 96365; 96376; 99291; C1874

== ENCOUNTER → 2023-04-03 | Outpatient (CLI) | payer OTHER ==
[2023-04-03 18:13] LABS: Basophils # (A) 0.08 X 10*3/uL (0.00-0.10); Basophils % (A) 1.2 %; Eosinophils # (A) 0.13 X 10*3/uL (0.04-0.35); HCT 46.2 % (39.6-50.0); HGB 15.7 g/dL (13.0-17.0); Lymphocytes # (A) 1.84 X 10*3/uL (0.90-5.00); Lymphocytes % (A) 28.6 %; MCH 30.3 pg (27.0-32.0); MCV 89.2 FL (80.0-97.0); Mean Platelet Volume 8.3 FL (9.5-12.2); Monocytes # (A) 0.54 X 10*3/uL (0.20-1.00); Monocytes % (A) 8.4 %; NRBC Per 100 WBC 0 X 10*3/uL (0.00-0.01); Neutrophils # (A) 3.75 X 10*3/uL (1.80-7.70); Neutrophils % (A) 58.2 %; Platelet Count 337 X 10*3/uL (140-440); RBC 5.18 X 10*6/uL (4.40-5.60); RDW 12.2 % (11.5-14.5); WBC 6.44 X 10*3/uL (4.50-10.00)
[2023-04-03 18:36] LABS: ALT 50 U/L (10-49); AST 31 U/L (14-35); Albumin 4.5 g/dL (3.8-4.9); Albumin/Globulin Ratio 1.73 Ratio (1.60-3.17); Alkaline Phosphatase 67 U/L (41-126); Blood Urea Nitrogen 13.3 mg/dL (9.0-27.0); Calcium 10.1 mg/dL (8.7-10.3); Carbon Dioxide 26.9 mmol/L (21.6-31.8); Chloride 102 mmol/L (96-109); Chol/HDL Ratio 4.32 Ratio; Globulin 2.6 g/dL (1.6-3.3); Glucose 87 mg/dL (70-110); LDL Cholesterol,Calculated 118.7 mg/dL (0.0-131.0); Magnesium 1.9 mg/dL (1.5-2.4); Potassium 4.3 mmol/L (3.5-5.5); Sodium 142 mmol/L (135-145); Total Bilirubin 0.9 mg/dL (0.3-1.2); Total Protein 7.1 g/dL (6.2-8.2)
== END | disposition home or self-care (01) ==
LOC: LABWHC1 11:06
PROVIDERS: ATTEND Nurse Practitioner Adult Health
DX: I10 Essential (primary) hypertension (principal); I25.10 Atherosclerotic heart disease of native coronary artery without angina pectoris; E78.5 Hyperlipidemia, unspecified
CPT/HCPCS: 36415; 80053; 80061; 83735; 84443; 85025